=== PATIENT | male | born 1945 | race Caucasian/White ===

== ENCOUNTER 2017-12-20 15:17 | Inpatient (IN) | payer MEDICARE ==
[~2017-12-20] VITALS: Ht 175.3 cm; Wt 60.0 kg
[2017-12-20 15:25] VITALS: O2SAT 74
[2017-12-20] MEDS ORDERED: SODIUM CHLOR 0.9% 1000 ML INJ 1,000 ML IV SCH ×2 (15:42→17:37)
[2017-12-20] MEDS ORDERED: SODIUM CHLORIDE 0.9% FLUSH 10 ML FLUSH IV FLUSH PRN ×2 (15:45→17:45)
[2017-12-20] MEDS ORDERED: NOREPINEPHRINE 4 MG/4 ML AMP ONE (15:48)
[2017-12-20 15:56] VITALS: RESP 16; O2SAT 75
[2017-12-20 16:05] VITALS: BP 101/57; PULSE 96; RESP 16; O2SAT 77
--- NOTE | 2017-12-20 16:06 | PD ---
HPI Chief Complaint: Code Blue Time Seen by Provider: 15:42 Travel History International Travel<30 days: No Contact w/Intl Traveler<30days: No Traveled to known affect area: No History of Present Illness HPI The patient is a 68-year-old male who presents to the emergency department via EMS as a code. The patient arrived as a Jayme Tolbert middle 174, real name is Silverio Marquez with date of 1945. According to the family the patient has a history of atrial fibrillation and severe COPD, he is followed by Dr. Castellanos. The patient had increasing shortness of breath and episodes of atrial fibrillation, which she has had in the past, over the weekend. The then called EMS earlier today. The patient's states that before EMS arrived the patient lost consciousness and had agonal respirations. She estimates a 5-7 minute downtime prior to EMS arrival. When EMS arrived they started doing bag valve ventilations and CPR on the patient, stated he was in pulseless electrical activity. They did provide epinephrine prior to arrival. Upon arrival patient was pulseless, CPR was active. No further information was obtainable from the patient. FOR[facility]LY [facility], [facility] Past Medical History Narrative Medical Myocardial infarction, cardiac ablation, COPD ?: Not Past Surgical History Narrative Surgical Cardiac ablation, appendectomy Social History Tobacco Use: Yes Allergies-Medications (Allergen,Severity, Reaction): Coded Allergies: No Allergy Information Available (Unverified , 12/20/17) Intubated Review of Systems ROS Limitations: Clinical Condition Except as stated in HPI: all other systems reviewed are Neg Physical Exam Narrative GENERAL: Eyes closed, nonverbal, GCS 3. SKIN: Cool to the touch and mottled. HEAD: Atraumatic. Normocephalic. EYES: Pupils equal and round. 4 mm bilateral nonreactive. ENT: No nasal bleeding or discharge. Poor dentition. NECK: Trachea midline. No JVD. CARDIOVASCULAR: No pulse detected. RESPIRATORY: No spontaneous respirations noted. GASTROINTESTINAL: Abdomen soft, slightly distended. MUSCULOSKELETAL: No obvious deformities. No clubbing. No cyanosis. No edema. NEUROLOGICAL: GCS 3. PSYCHIATRIC: Unable to obtain. Data Data Last Documented VS Vital Signs Date Time Temp Pulse Resp B/P (MAP) Pulse Ox O2 Delivery O2 Flow Rate FiO2 12/20/17 16:33 97 18 136/64 (88) 98 Ventilator 100 Orders Orders Electrocardiogram (12/20/17 15:42) Complete Blood Count With Diff (12/20/17 15:42) Comprehensive Metabolic Panel (12/20/17 15:42) Creatine Kinase (Cpk) (12/20/17 15:42) Prothrombin Time / Inr (Pt) (12/20/17 15:42) Act Partial Throm Time (Ptt) (12/20/17 15:42) Troponin I (12/20/17 15:42) Urinalysis - C+S If Indicated (12/20/17 15:42) Lactic Acid Sepsis Protocol (12/20/17 15:42) Blood Culture (12/20/17 15:42) Chest, Single Ap (12/20/17 15:42) Blood Glucose (12/20/17 15:42) Ecg Monitoring (12/20/17 15:42) Iv Access Insert/Monitor (12/20/17 15:42) Oximetry (12/20/17 15:42) Sodium Chloride 0.9% Flush (Ns Flush) (12/20/17 15:45) Sodium Chlor 0.9% 1000 Ml Inj (Ns 1000 M (12/20/17 15:42) Titi-Gastric Tube Insert/Mon (12/20/17 15:42) Urinary Catheter Insert/Apply (12/20/17 15:42) Norepinephrine Inj (Levophed Inj) (12/20/17 15:48) Ct Brain W/O Iv Contrast(Rout) (12/20/17 ) Arterial Blood Gas (Abg) (12/20/17 ) Midazolam Inj (Versed Inj) (12/20/17 16:15) Midazolam Inj (Versed Inj) (12/20/17 16:14) Sodium Bicarbonate 8.4% Inj (Sodium Bica (12/20/17 16:30) ^ Infusion (12/20/17 ) Norepinephrine-Dextrose Drip (Levophed-D (12/20/17 17:00) Terbutaline Inj (Brethine Inj) (12/20/17 16:30) Lactic Acid Sepsis Protocol (12/20/17 16:27) Midazolam Inj (Versed Inj) (12/20/17 17:00) Midazolam 100 Mg/100 Ml Inj (Versed Inj) (12/20/17 17:00) ^ Infusion (12/20/17 16:57) Fentanyl Drip (Fentanyl Drip) (12/20/17 17:00) Elevate Head Of Bed (12/20/17 17:37) Chlorhexidine 0.12% Liq (Peridex 0.12% L (12/20/17 20:00) Oral Hygiene Kit (12/21/17 16:00) Resp Ventilation- Pressure (12/20/17 ) Restraints Non-Violent SILVERIO.Q3H (12/20/17 17:37) Ventilator Weaning Readiness SILVERIO.DAILY@0800 (12/20/17 17:37) Admit To Inpatient (12/20/17 ) Code Status (12/20/17 17:37) Vital Signs (Adult) SILVERIO.Q1H (12/20/17 17:37) Activity Bed Rest (12/20/17 17:37) Elevate Head Of Bed (12/20/17 17:37) Diet Npo (12/20/17 Dinner) Sodium Chlor 0.9% 1000 Ml Inj (Ns 1000 M (12/20/17 17:37) Sodium Chloride 0.9% Flush (Ns Flush) (12/20/17 17:45) Sodium Chloride 0.9% Flush (Ns Flush) (12/20/17 21:00) Pantoprazole Inj (Protonix Inj) (12/21/17 09:00) Artificial Tears Opth Soln (Tears Natura (12/20/17 18:00) Ondansetron Inj (Zofran Inj) (12/20/17 17:45) Albuterol-Ipratropium Neb (Duoneb Neb) (12/20/17 20:00) Albuterol Neb (Albuterol Neb) (12/20/17 17:45) Complete Blood Count With Diff (12/21/17 04:00) Comprehensive Metabolic Panel (12/21/17 04:00) Act Partial Throm Time (Ptt) (12/21/17 04:00) Prothrombin Time / Inr (Pt) (12/21/17 04:00) Magnesium (Mg) (12/21/17 04:00) Phosphorus (Po4) (12/21/17 04:00) Lactic Acid (12/21/17 04:00) Rf Manager / Telemetry SILVERIO.Q8H (12/20/17 17:37) Scd Bilateral/Knee High SILVERIO.BID (12/20/17 17:37) ^ Initiate Protocol (12/20/17 17:37) Instruction (12/20/17 17:37) [facility] [place]12/20/17 17:45) Chlorhexidine 2% Cloth (Chlorhexidine 2% (12/21/17 04:00) Chlorhexidine 2% Cloth (Chlorhexidine 2% (12/20/17 17:45) Mrsa Pcr Surveillance (12/20/17 17:37) Docusate Sodium-Senna (Rae-Colace) (12/20/17 21:00) Magnesium Hydroxide Liq (Milk Of Magnesi (12/20/17 17:45) Sennosides (Senokot) (12/20/17 17:45) Bisacodyl Supp (Dulcolax Supp) (12/20/17 17:45) Lactulose Liq (Lactulose Liq) (12/20/17 17:45) Vital Signs (Adult) SILVERIO.QSHIFT (12/20/17 17:37) ^ Send Patient To (12/20/17 17:37) Discontinue Ng Tube (12/20/17 17:37) ^ Other Nursing Orders (12/20/17 17:37) Hydromorphone Pf Inj (Dilaudid Pf Inj) (12/20/17 17:45) Lorazepam Inj (Ativan Inj) (12/20/17 17:45) Hyoscyamine (Levsin) (12/20/17 17:45) Hydromorphone Pf Inj (Dilaudid Pf Inj) (12/20/17 18:00) Lorazepam Inj (Ativan Inj) (12/20/17 18:00) Hydromorphone Pf Inj (Dilaudid Pf Inj) (12/20/17 20:00) Hydromorphone Pf Inj (Dilaudid Pf Inj) (12/20/17 18:15) Hydromorphone Pf Inj (Dilaudid Pf Inj) (12/20/17 18:15) Lorazepam Inj (Ativan Inj) (12/20/17 20:00) Lorazepam Inj (Ativan Inj) (4/10/18 18:15) Lorazepam Inj (Ativan Inj) (12/20/17 18:15) Lorazepam Inj (Ativan Inj) (12/20/17 18:15) Acetaminophen Supp (Tylenol Supp) (12/20/17 18:15) Furosemide Inj (Lasix Inj) (12/20/17 18:15) Bisacodyl Supp (Dulcolax Supp) (12/20/17 18:15) Resp Extubation (12/20/17 ) Inpatient Certification (12/20/17 ) Phenylephrine Inj (Neosynephrine Inj) (12/20/17 17:45) Terbutaline Inj (Brethine Inj) (12/20/17 17:45) Admit Order (Ed Use Only) (12/20/17 18:12) Labs Laboratory Tests Test 12/20/17 15:41 12/20/17 15:45 12/20/17 15:55 White Blood Count 19.3 TH/MM3 Red Blood Count 5.56 MIL/MM3 Hemoglobin 17.1 GM/DL Hematocrit 55.5 % Mean Corpuscular Volume 99.9 FL Mean Corpuscular Hemoglobin 30.8 PG Mean Corpuscular Hemoglobin Concent 30.8 % Red Cell Distribution Width 17.4 % Platelet Count 189 TH/MM3 Mean Platelet Volume 7.8 FL Neutrophils (%) (Auto) 70.0 % Lymphocytes (%) (Auto) 21.5 % Monocytes (%) (Auto) 7.6 % Eosinophils (%) (Auto) 0.6 % Basophils (%) (Auto) 0.3 % Neutrophils # (Auto) 13.5 TH/MM3 Lymphocytes # (Auto) 4.1 TH/MM3 Monocytes # (Auto) 1.5 TH/MM3 Eosinophils # (Auto) 0.1 TH/MM3 Basophils # (Auto) 0.1 TH/MM3 CBC Comment AUTO DIFF Differential Total Cells Counted 100 Neutrophils % (Manual) 58 % Band Neutrophils % 2 % Lymphocytes % 24 % Monocytes % 11 % Eosinophils % 2 % Neutrophils # (Manual) 12.2 TH/MM3 Metamyelocytes 1 % Myelocytes 2 % Differential Comment FINAL DIFF MANUAL Toxic Granulation 1+ Platelet Estimate NORMAL Platelet Morphology Comment NORMAL Basophilic Stippling FAINT Spherocytes OCC Prothrombin Time 12.7 SEC Prothromb Time International Ratio 1.3 RATIO Activated Partial Thromboplast Time 32.4 SEC Lactic Acid Level 9.7 mmol/L Urine Color YELLOW Urine Turbidity CLEAR Urine pH 5.5 Urine Specific Bradford 1.011 Urine Protein NEG mg/dL Urine Glucose (UA) NEG mg/dL Urine Ketones NEG mg/dL Urine Occult Blood NEG Urine Nitrite NEG Urine Bilirubin NEG Urine Urobilinogen LESS THAN 2.0 MG/DL Urine Leukocyte Esterase SMALL Urine RBC 1 /hpf Urine WBC LESS THAN 1 /hpf Urine Hyaline Casts 3 /lpf Microscopic Urinalysis Comment CATH-CULT NOT IND Blood Gas Puncture Site ART LINE Blood Gas Patient Temperature 98.6 Blood Gas HCO3 18 mmol/L Blood Gas Base Excess -11.1 mmol/L Blood Gas Oxygen Saturation 66 % Arterial Blood pH 7.02 Arterial Blood Partial Pressure CO2 75 mmHg Arterial Blood Partial Pressure O2 56 mmHG Arterial Blood Oxygen Content 15.7 Vol % Arterial Blood Carboxyhemoglobin 0.1 % Arterial Blood Methemoglobin 0.8 % Blood Gas Hemoglobin 16.8 G/DL Oxygen Delivery Device VENTILATOR Blood Gas Ventilator Setting Blood Gas Inspired Oxygen 100 % MDM Medical Decision Making Medical Screen Exam Complete: Yes Emergency Medical Condition: Yes Medical Record Reviewed: Yes Interpretation(s) EKG reveals atrial fibrillation with apparent conduction versus PVCs. Right bundle branch block. Last Impressions Chest X-Ray 12/20/17 1549 Signed Impressions: Service Date/Time: Wednesday, December 20, 2017 16:02 - CONCLUSION: Underinflated examination with elevated right hemidiaphragm and atelectasis versus scar at the right lung base. Otherwise, no definite acute finding is seen. Jayme Mayfield MD Laboratory Tests Test 12/20/17 15:41 12/20/17 15:45 12/20/17 15:55 White Blood Count 19.3 TH/MM3 Red Blood Count 5.56 MIL/MM3 Hemoglobin 17.1 GM/DL Hematocrit 55.5 % Mean Corpuscular Volume 99.9 FL Mean Corpuscular Hemoglobin 30.8 PG Mean Corpuscular Hemoglobin Concent 30.8 % Red Cell Distribution Width 17.4 % Platelet Count 189 TH/MM3 Mean Platelet Volume 7.8 FL Neutrophils (%) (Auto) 70.0 % Lymphocytes (%) (Auto) 21.5 % Monocytes (%) (Auto) 7.6 % Eosinophils (%) (Auto) 0.6 % Basophils (%) (Auto) 0.3 % Neutrophils # (Auto) 13.5 TH/MM3 Lymphocytes # (Auto) 4.1 TH/MM3 Monocytes # (Auto) 1.5 TH/MM3 Eosinophils # (Auto) 0.1 TH/MM3 Basophils # (Auto) 0.1 TH/MM3 CBC Comment AUTO DIFF Differential Total Cells Counted 100 Neutrophils % (Manual) 58 % Band Neutrophils % 2 % Lymphocytes % 24 % Monocytes % 11 % Eosinophils % 2 % Neutrophils # (Manual) 12.2 TH/MM3 Metamyelocytes 1 % Myelocytes 2 % Differential Comment FINAL DIFF MANUAL Toxic Granulation 1+ Platelet Estimate NORMAL Platelet Morphology Comment NORMAL Basophilic Stippling FAINT Spherocytes OCC Prothrombin Time 12.7 SEC Prothromb Time International Ratio 1.3 RATIO Activated Partial Thromboplast Time 32.4 SEC Lactic Acid Level 9.7 mmol/L Urine Color YELLOW Urine Turbidity CLEAR Urine pH 5.5 Urine Specific Bradford 1.011 Urine Protein NEG mg/dL Urine Glucose (UA) NEG mg/dL Urine Ketones NEG mg/dL Urine Occult Blood NEG Urine Nitrite NEG Urine Bilirubin NEG Urine Urobilinogen LESS THAN 2.0 MG/DL Urine Leukocyte Esterase SMALL Urine RBC 1 /hpf Urine WBC LESS THAN 1 /hpf Urine Hyaline Casts 3 /lpf Microscopic Urinalysis Comment CATH-CULT NOT IND Blood Gas Puncture Site ART LINE Blood Gas Patient Temperature 98.6 Blood Gas HCO3 18 mmol/L Blood Gas Base Excess -11.1 mmol/L Blood Gas Oxygen Saturation 66 % Arterial Blood pH 7.02 Arterial Blood Partial Pressure CO2 75 mmHg Arterial Blood Partial Pressure O2 56 mmHG Arterial Blood Oxygen Content 15.7 Vol % Arterial Blood Carboxyhemoglobin 0.1 % Arterial Blood Methemoglobin 0.8 % Blood Gas Hemoglobin 16.8 G/DL Oxygen Delivery Device VENTILATOR Blood Gas Ventilator Setting Blood Gas Inspired Oxygen 100 % Differential Diagnosis Differential diagnosis includes respiratory arrest, cardiac arrest, pulmonary embolism, end-stage COPD, sepsis, pneumonia, cardiac tamponade, pericardial effusion, pleural effusion, electrolyte abnormality. Narrative Course Upon arrival the patient's GCS was 3, no airway was established, the patient was not breathing spontaneously, the patient had no pulse. Therefore, CPR was resumed. The patient was intubated using rapid sequence intubation with etomidate and succinylcholine with an 8-0 endotracheal tube. The patient was administered 2 rounds of epinephrine, there was spontaneous return of circulation with palpable pulse. Arterial line was placed in the left upper extremity. The patient's mean arterial pressure was greater than 65%. The patient was placed on IV fluids, post intubation chest x-ray was obtained. Stat CT the brain was ordered. OG tube was placed. Collins catheter was placed. I spoke with the family in the consultation room, they requested no CPR if the patient loses pulses once again, but states it is acceptable to continue treatment. A call was placed the on-call mercury recoverer to evaluate if the patient is a candidate for code cool. The patient is not a candidate for code cool, the patient's pH was 7.0, therefore, received bicarbonate 1 amp intravenously. The then asked that the patient be withdrawn from care after he was evaluated by the mercury recoverer. Dr. Mathews and myself both agree that the patient does have history of COPD which has progressed to end-stage and is on oxygen 8 L at home. The states the patient does not want to be intubated, she is requesting withdrawal of treatment. Therefore, we did sign paperwork to withdraw treatment and will await for family to arrive prior to withdrawing care. Critical Care Narrative Aggregate critical care time was 50 minutes. Time to perform other separately billable procedures was not included in the critical care time. My time did not include minutes spent treating any other patients simultaneously or on activities that did not directly contribute to the patient's treatment. The services I provided to this patient were to treat and/or prevent clinically significant deterioration that could result in: Anoxia, hypoxia, aspiration, shock, . I provided critical care services requiring my management, as noted below: Chart data review, documentation time, medication orders and management, vital sign assessments/reviewing monitor data, ordering and reviewing lab tests, ordering and interpreting/reviewing x-rays and diagnostic studies, care of the patient and discussion of the patient with the admitting physicians. Procedures Procedure Narrative The patient was put in optimal position for the procedure. Rapid sequence intubation was initiated by me using 20 milligrams of etomidate IV and 100 milligrams of succinylcholine IV. The patient was intubated with a 8-0 cuffed endotracheal tube. Tube placement was confirmed by visualization of the tube and balloon passing through the cords, capnometry and subsequent chest x-ray. Breath sounds were equal and well aerated bilaterally postintubation. No breath sounds over stomach. Patient tolerated procedure well. An arterial line was placed in the left radial artery under ultrasound guidance with a linear probe. The area was draped and prepped in normal sterile fashion , cleaned with ChloraPrep, and using a linear probe, an arterial line was placed in left radial artery Via Seldinger technique. There was good pulsatile blood flow. The patient tolerated the procedure without difficulty. There was a small hematoma at the site of puncture, otherwise no obvious complications. CPR and ACLS protocol was followed for approximately 10 minutes in the emergency department. Physician Communication Physician Communication A call was placed to the on-call mercury recoverer for admission. Diagnosis Primary Impression: Cardiopulmonary arrest with successful resuscitation Admitting Information Admitting Physician Requests: Admit Condition: Critical Josue Woodard MD Dec 20, 2017 16:06
[2017-12-20 16:14] LABS: AUTOMATED NEUTROPHIL # 13.5 TH/MM3 (1.8-7.7); BASOPHIL # 0.1 TH/MM3 (0-0.2); BASOPHIL % 0.3 % (0.0-2.0); EOSINOPHIL # 0.1 TH/MM3 (0-0.4); EOSINOPHIL % 0.6 % (0.0-4.0); HEMATOCRIT 55.5 % (39.0-51.0); HEMOGLOBIN 17.1 GM/DL (13.0-17.0); LYMPH % 21.5 % (9.0-44.0); LYMPHOCYTE # 4.1 TH/MM3 (1.0-4.8); MEAN CELL VOLUME 99.9 FL (80.0-100.0); MEAN CORPUSCULAR HEMOGLOBIN 30.8 PG (27.0-34.0); MEAN CORPUSCULAR HGB CONC 30.8 % (32.0-36.0); MEAN PLATELET VOLUME 7.8 FL (7.0-11.0); MONO % 7.6 % (0.0-8.0); MONOCYTE # 1.5 TH/MM3 (0-0.9); PLATELET COUNT 189 TH/MM3 (150-450); RED BLOOD COUNT 5.56 MIL/MM3 (4.50-5.90); RED CELL DISTRIBUTION WIDTH 17.4 % (11.6-17.2); WHITE BLOOD COUNT 19.3 TH/MM3 (4.0-11.0)
[2017-12-20] MEDS ORDERED: MIDAZOLAM HCL 5 MG/ML VIAL (1 ML) ONE (16:14)
[2017-12-20] MEDS ORDERED: MIDAZOLAM HCL 5 MG/5 ML VIAL IV PUSH ONE (16:15)
[2017-12-20 16:22] VITALS: BP 64/37; PULSE 92; RESP 18; O2SAT 84
[2017-12-20] MEDS ORDERED: SODIUM BICARBONATE 8.4% INJ 50 MEQ/50 ML SYR IV PUSH ONE (16:30)
[2017-12-20] MEDS ORDERED: TERBUTALINE INJ 1 MG/ML AMP SQ PRN ×2 (16:30→17:45)
[2017-12-20 16:33] VITALS: BP 136/64; PULSE 97; RESP 18; O2SAT 98
[2017-12-20 16:34] LABS: INTERNATIONAL NORMALIZED RATIO 1.3 RATIO; PROTHROMBIN TIME - PATIENT 12.7 SEC (9.8-11.6)
[2017-12-20 16:42] LABS: BILIRUBIN, URINE NEG (NEG); BLOOD, URINE NEG (NEG); GLUCOSE,URINE NEG (NEG); HYALINE CAST, URINE 3 /lpf (RARE); KETONE, URINE NEG (NEG); NITRITE,URINE NEG (NEG); PH, URINE 5.5 (5.0-8.5); URINE COLOR YELLOW (YELLW/STRAW); URINE LEUKOCYTE ESTERASE SMALL (NEG)
[2017-12-20 16:42] LABS: LACTIC ACID SEPSIS PROTOCOL 9.7 mmol/L (0.4-2.0)
--- NOTE | 2017-12-20 16:45 | RADRPT ---
EXAM DATE/TIME: 12/20/2017 16:02 [facility] COMPARISON: No previous studies available for comparison. INDICATIONS : Short of breath. MEDICAL HISTORY : None. SURGICAL HISTORY : None. ENCOUNTER: Initial ACUITY: 1 day PAIN SCORE: Non-responsive. LOCATION: Bilateral chest FINDINGS: Portable AP views of the chest demonstrate a normal-sized cardiac silhouette with calcification of th e aorta. Endotracheal tube is present with distal tip measuring 5.2 cm in the joan. NG tube courses beyond the GE junction. Lungs are underinflated. Linear opacity is present at the right lung base. I nterstitial prominence is present bilaterally. No pleural effusion or pneumothorax is identified. The bones and soft tissues demonstrate no acute abnormality. CONCLUSION: Underinflated examination with elevated right hemidiaphragm and atelectasis versus scar at the right lung base. Otherwise, no definite acute finding is seen. Jayme Mayfield MD on December 20, 2017 at 16:41 Board Certified Radiologist. This report was verified electronically.
[2017-12-20 16:46] LABS: BANDS 2 % (0-6); LYMPHOCYTES 24 % (9-44); METAMYELOCYTES 1 % (0-1); MONOCYTES 11 % (0-8); MYELOCYTES 2 % (0-0); NEUTROPHIL # MANUAL DIFF 12.2 TH/MM3 (1.8-7.7); POLYS (SEG NEUTROPHILS) 58 % (16-70)
[2017-12-20 16:47] LABS: SPHEROCYTES OCC (NORMAL)
[2017-12-20 16:48] LABS: TOXIC GRANULATION 1+ (NORMAL)
[2017-12-20] MEDS ORDERED: fentaNYL DRIP 250 ML IV PRN ×3 (17:00→17:45)
[2017-12-20] MEDS ORDERED: MIDAZOLAM 100 MG/100 ML INJ 100 ML IV PRN ×3 (17:00→18:30)
[2017-12-20] MEDS ORDERED: MIDAZOLAM HCL 2 MG/2 ML VIAL IV PUSH ONE (17:00)
[2017-12-20] MEDS ORDERED: NOREPINEPHRINE-DEXTROSE DRIP 250 ML IV PRN (17:00)
--- NOTE | 2017-12-20 17:43 | HHI.HP ---
[facility] Service Critical Care Medicine Primary Care Physician Yevgeniy Damon Admission Diagnosis Out of hospital cardiac arrest likely secondary respiratory failure Diagnosis: (1) Cardiopulmonary arrest with successful resuscitation Diagnosis: Principal (2) Coronary artery disease Diagnosis: Principal (3) Lactic acidosis Diagnosis: Principal (4) Polycythemia Diagnosis: Secondary (5) Leukocytosis Diagnosis: Secondary (6) COPD (chronic obstructive pulmonary disease) Diagnosis: Principal Chief Complaint: Out of hospital cardiac arrest Travel History International Travel<30 Days: No Contact w/Intl Traveler <30 Da: No Traveled to Known Affected Are: No History of Present Illness 68-year-old male. Date of admission 12/20/2017. 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 Castellanos atrial fibrillation status post ablation follows Dr. Warner hypertension and alcohol use he presents today to [facility] emergency department as our hospital cardiac arrest likely secondary to respiratory failure versus tachybradycardia. The patient arrived as a Jayme Tolbert middle 89, real name is Silverio Onofremarnie Marquez with date of 1945. He is 72. The patient had increasing shortness of breath and episodes of atrial fibrillation including tachybradycardia type syndromes, which she has had in the past, over the weekend. The then called EMS earlier today. The patient's states that before EMS arrived the patient lost consciousness and had agonal respirations. She estimates a 5-7 minute downtime prior to EMS arrival. When EMS arrived they started doing bag valve ventilations and CPR on the patient, stated he was in pulseless electrical activity. They did provide epinephrine prior to arrival. Upon arrival patient was pulseless, CPR was active. No further information was obtainable from the patient. Patient was intubated after receiving 20 mg etomidate and 100 mg succinylcholine in the ED. CPR ALS continued for additional 10 minutes for total of 26 minutes. Pupils are approximately 6 mm laterally and fixed. Patient is overbreathing the ventilator. No gag. No cough. Minimal corneal reflex. Does not withdraw to pain. Lactic acid 9.7. White blood cell count 17 ,000. Hemoglobin 17. Remainder laboratories are all pending. EKG revealed a right bundle branch block/atrial fibrillation with ectopy. After long discussion with /healthcare proxy Makenzie Jimmy articles B and C were signed with Dr. Woodard and witnesses and patient will be extubated upon arrival to ICU Review of Systems ROS Limitations: Intubated Past Family Social History Allergies: Coded Allergies: No Allergy Information Available (Unverified , 12/20/17) Intubated Past Medical History End-stage COPD on 8 L liquid oxygen Atrial fibrillation status post ablation Coronary disease status post stents 3 Hypertension Alcohol use Prior tobaccoism Past Surgical History Ablation 2010 Appendectomy Coronary artery stents 3 Reported Medications Fluticasone/Vilanterol 100/25 one puff daily Tiotropium 18 mcg inhalation daily Carvedilol 12.5 mg p.o. twice daily Aspirin 81 mg p.o. daily Active Ordered Medications Reviewed in EMR Family History Mother age 76 failure to thrive. Father at age 80 of organic causes Social History Quit tobacco in 2007. 40 pack years. 6-12 beers weekly. No illicit drug use. Physical Exam Vital Signs Vital Signs Date Time Temp Pulse Resp B/P (MAP) Pulse Ox O2 Delivery O2 Flow Rate FiO2 12/20/17 16:33 97 18 136/64 (88) 98 Ventilator 100 12/20/17 16:22 92 18 64/37 (46) 84 Ventilator 100 12/20/17 16:05 96 16 101/57 (72) 77 Ventilator 100 12/20/17 15:56 16 75 100 12/20/17 15:25 74 100 Physical Exam GENERAL: 72-year-old male currently orotracheally intubated SKIN: Cool and dry. Positive clubbing HEAD: Atraumatic. Normocephalic. EYES: Pupils equal and round about 5 minutes bilaterally and fixed. No scleral icterus. No injection or drainage. ENT: No nasal bleeding or discharge. Mucous membranes pink and moist. NECK: Trachea midline. No JVD. CARDIOVASCULAR: Irregular, IR. S1, S2. No S4. Without murmur RESPIRATORY: Diminished breath sounds throughout. Positive end expiratory wheeze. GASTROINTESTINAL: Abdomen soft, non-tender, nondistended. Hypoactive bowel sounds appreciated MUSCULOSKELETAL: Extremities with clubbing. No edema. No obvious deformities. NEUROLOGICAL: Slight clearing reflex. Pupils as above. No gag. No cough. No withdrawal to pain in all 4 extremities. Laboratory Laboratory Tests Test 12/20/17 15:41 12/20/17 15:45 12/20/17 15:55 White Blood Count 19.3 Red Blood Count 5.56 Hemoglobin 17.1 Hematocrit 55.5 Mean Corpuscular Volume 99.9 Mean Corpuscular Hemoglobin 30.8 Mean Corpuscular Hemoglobin Concent 30.8 Red Cell Distribution Width 17.4 Platelet Count 189 Mean Platelet Volume 7.8 Neutrophils (%) (Auto) 70.0 Lymphocytes (%) (Auto) 21.5 Monocytes (%) (Auto) 7.6 Eosinophils (%) (Auto) 0.6 Basophils (%) (Auto) 0.3 Neutrophils # (Auto) 13.5 Lymphocytes # (Auto) 4.1 Monocytes # (Auto) 1.5 Eosinophils # (Auto) 0.1 Basophils # (Auto) 0.1 CBC Comment AUTO DIFF Differential Total Cells Counted 100 Neutrophils % (Manual) 58 Band Neutrophils % 2 Lymphocytes % 24 Monocytes % 11 Eosinophils % 2 Neutrophils # (Manual) 12.2 Metamyelocytes 1 Myelocytes 2 Differential Comment FINAL DIFF MANUAL Toxic Granulation 1+ Platelet Estimate NORMAL Platelet Morphology Comment NORMAL Basophilic Stippling FAINT Spherocytes OCC Prothrombin Time 12.7 Prothromb Time International Ratio 1.3 Activated Partial Thromboplast Time 32.4 Lactic Acid Level 9.7 Urine Color YELLOW Urine Turbidity CLEAR Urine pH 5.5 Urine Specific [place] 1.011 Urine Protein NEG Urine Glucose (UA) NEG Urine Ketones NEG Urine Occult Blood NEG Urine Nitrite NEG Urine Bilirubin NEG Urine Urobilinogen LESS THAN 2.0 Urine Leukocyte Esterase SMALL Urine RBC 1 Urine WBC LESS THAN 1 Urine Hyaline Casts 3 Microscopic Urinalysis Comment CATH-CULT NOT IND Blood Gas Puncture Site ART LINE Blood Gas Patient Temperature 98.6 Blood Gas HCO3 18 Blood Gas Base Excess -11.1 Blood Gas Oxygen Saturation 66 Arterial Blood pH 7.02 Arterial Blood Partial Pressure CO2 75 Arterial Blood Partial Pressure O2 56 Arterial Blood Oxygen Content 15.7 Arterial Blood Carboxyhemoglobin 0.1 Arterial Blood Methemoglobin 0.8 Blood Gas Hemoglobin 16.8 Oxygen Delivery Device VENTILATOR Blood Gas Ventilator Setting Blood Gas Inspired Oxygen 100 Date/Time Source Procedure Growth Status 12/20/17 15:15 Blood Peripheral Aerobic Blood Culture Pending Received 12/20/17 15:15 Blood Peripheral Anaerobic Blood Culture Pending Received Result Diagram: 12/20/17 1541 Imaging Last Impressions Chest X-Ray 12/20/17 1542 Signed Impressions: Service Date/Time: Wednesday, December 20, 2017 16:02 - CONCLUSION: Underinflated examination with elevated right hemidiaphragm and atelectasis versus scar at the right lung base. Otherwise, no definite acute finding is seen. Jayme Mayfield MD Septic Shock Reassessment Septic shock perfusion: reassessment completed Caprini VTE Risk Assessment Caprini VTE Risk Assessment: Mod/High Risk (score >= 2) VTE Pharm Contraindication: Documented Caprini Risk Assessment Model Point Value = 1 Point Value = 2 Point Value = 3 Point Value = 5 Age 41-60 Minor surgery BMI > 25 kg/m2 Swollen legs Varicose veins or History of unexplained or recurrent spontaneous Oral contraceptives or hormone replacement Sepsis (< 1 month) Serious lung disease, including pneumonia (< 1 month) Abnormal pulmonary function Acute myocardial infarction Congestive heart failure (< 1 month) History of inflammatory bowel disease Medical patient at bed rest Age 61-74 Arthroscopic surgery Major open surgery (> 45 min) Laparoscopic surgery (> 45 min) Malignancy Confined to bed (> 72 hours) Immobilizing plaster cast Central venous access Age >= 75 History of VTE Family history of VTE Factor V Leiden Prothrombin [id number] Lupus anticoagulant Anticardiolipin antibodies Elevated serum homocysteine Heparin-induced thrombocytopenia Other congenital or acquired thrombophilia Stroke (< 1 month) Elective arthroplasty Hip, pelvis, or leg fracture Acute spinal cord injury (< 1 month) Prophylaxis Regimen Total Risk Factor Score Risk Level Prophylaxis Regimen 0-1 Low Early ambulation 2 Moderate Order ONE of the following: *Sequential Compression Device (SCD) *Heparin 5000 units SQ BID 3-4 Higher Order ONE of the following medications: *Heparin 5000 units SQ TID *Enoxaparin/Lovenox 40 mg SQ daily (WT < 150 kg, CrCl > 30 mL/min) *Enoxaparin/Lovenox 30 mg SQ daily (WT < 150 kg, CrCl > 10-29 mL/min) *Enoxaparin/Lovenox 30 mg SQ BID (WT < 150 kg, CrCl > 30 mL/min) AND/OR *Sequential Compression Device (SCD) 5 or more Highest Order ONE of the following medications: *Heparin 5000 units SQ TID (Preferred with Epidurals) *Enoxaparin/Lovenox 40 mg SQ daily (WT < 150 kg, CrCl > 30 mL/min) *Enoxaparin/Lovenox 30 mg SQ daily (WT < 150 kg, CrCl > 10-29 mL/min) *Enoxaparin/Lovenox 30 mg SQ BID (WT < 150 kg, CrCl > 30 mL/min) AND *Sequential Compression Device (SCD) Assessment and Plan Assessment and Plan Neuro/Psych: 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 Castellanos is his cert occupational therapy asst GI: NG tube to low intermittent wall suction Pantoprazole for GI prophylaxis Docusate sodium/senna 1 tablet for bowel regimen : Collins catheter for accurate I's and O's in a critically ill patient Endo: Sliding scale insulin if indicated Renal: Creatinine currently pending Monitor urine output Accurate I's and O's Heme: Leukocytosis Polycythemia Monitor CBC daily. Follow trends ID: Monitor for infection. Due to withdrawal of care will not initiate antibiotics Blood cultures 2 12/20 pending FEN: Replace electrolytes as clinically indicated MSK: BMI of 19 Access -Utilize peripheral IV. -Left radial art line day 1 placed in ED Prophylaxis -GI -pantoprazole -DVT -SCD/holding pharmacological prophylaxis with withdrawal of care Critical Care: The total critical care time was 35 minutes. Time to perform other separately billable procedures was not included in the critical care time. Code Status DNR/DNI Discussed Condition With Dr. Woodard/emergency physician. Makenzie Marquez/patient's . Patient's wishes were for no intubation/aggressive measures. With prolonged CPR and current physical examination agreed with signing articles C. Plan for withdrawal of care. Articles B and C are signed. Problem Qualifiers (1) Coronary artery disease: Qualified Codes: I25.10 - Atherosclerotic heart disease of [place]' coronary artery without angina pectoris (2) Leukocytosis: Qualified Codes: D72.829 - Elevated white blood cell count, unspecified (3) COPD (chronic obstructive pulmonary disease): Qualified Codes: J44.9 - Chronic obstructive pulmonary disease, unspecified Javad Mathews MD Dec 20, 2017 17:43
[2017-12-20] MEDS ORDERED: LORazepam 2 MG/ML VIAL IV PUSH ONE ×2 (17:45→18:00)
[2017-12-20] MEDS ORDERED: BISACODYL 10 MG SUPP RECTAL PRN ×2 (17:45→18:15)
[2017-12-20] MEDS ORDERED: HYDROmorphone HCL PF 2 MG/ML VIAL IV PUSH ONE ×2 (17:45→18:00)
[2017-12-20] MEDS ORDERED: MISCELLANEOUS NURSING INFORMATION XX SCH (17:45)
[2017-12-20] MEDS ORDERED: PHENYLEPHRINE INJ 160 MG in DEXTROSE 5% IN WATE 500 ML INJ 484 ML IV PRN ×2 (17:45)
[2017-12-20] MEDS ORDERED: ONDANSETRON HCL 4 MG/2 ML VIAL IV PUSH PRN (17:45)
[2017-12-20] MEDS ORDERED: MAGNESIUM HYDROXIDE SUSP 30 ML CUP PO PRN (17:45)
[2017-12-20] MEDS ORDERED: SENNOSIDES 8.6 MG TAB PO PRN (17:45)
[2017-12-20] MEDS ORDERED: RESP: ALBUTEROL 2.5 MG/3 ML NEB (PRN) INH (17:45)
[2017-12-20] MEDS ORDERED: CHLORHEXIDINE GLUCONATE 2 % 1 PACK (2 CLOTHS) TOP PRN (17:45)
[2017-12-20] MEDS ORDERED: LACTULOSE SYRUP 20 GM/30 ML CUP PO PRN (17:45)
[2017-12-20] MEDS ORDERED: HYOSCYAMINE 0.125 MG TAB PO/SL ONE (17:45)
[2017-12-20] MEDS ORDERED: ARTIFICIAL TEARS OPTH SOLN 15 ML BTL EACH EYE SCH (18:00)
[2017-12-20] MEDS ORDERED: HYDROmorphone HCL PF 2 MG/ML VIAL IV PUSH PRN ×2 (18:15)
[2017-12-20] MEDS ORDERED: ACETAMINOPHEN 650 MG SUPP RECTAL PRN (18:15)
[2017-12-20] MEDS ORDERED: FUROSEMIDE 20 MG/2 ML VIAL IV PUSH PRN (18:15)
[2017-12-20] MEDS ORDERED: LORazepam 2 MG/ML VIAL IV PUSH PRN ×3 (18:15)
[2017-12-20 19:02] LABS: ALT (GPT) 100 U/L (12-78)
[2017-12-20 19:08] LABS: ALBUMIN 3.1 GM/DL (3.4-5.0); AST (GOT) 169 U/L (15-37); BICARBONATE 25.8 MEQ/L (21.0-32.0); BLOOD UREA NITROGEN 37 MG/DL (7-18); CALCIUM 7.6 MG/DL (8.5-10.1); CREATININE 1.92 MG/DL (0.60-1.30); GLOMERULAR FILTRATION RATE 30 ML/MIN (>89); GLUCOSE,RANDOM 166 MG/DL (74-106)
[2017-12-20] MEDS ORDERED: EPINEPHrine HCL (1:10,000) 1 MG/10 ML SYRINGE IV ONE (19:24)
--- NOTE | 2017-12-20 19:30 | PD ---
Physical Exam Date Seen by Provider: Dec 20, 2017 Time Seen by Provider: 19:29 Narrative asked to pronounce patient GENERAL: Well-developed well-nourished male unresponsive. gcs 3. SKIN: Warm and dry. No response to painful stimuli. HEAD: Normocephalic. EYES: Bilateral pupils round and nonreactive to light NECK: Trachea midline. No carotid pulses to palpation. CARDIOVASCULAR: No heart sounds to auscultation; bedside ultrasound with curvilinear probe in the subxiphoid location reveals no cardiac activity. No radial or dorsalis pedis pulses to palpation. RESPIRATORY: No chest rise and no breath sounds to auscultation. Data Data Last Documented VS Vital Signs Date Time Temp Pulse Resp B/P (MAP) Pulse Ox O2 Delivery O2 Flow Rate FiO2 12/20/17 16:33 97 18 136/64 (88) 98 Ventilator 100 Orders Orders Electrocardiogram (12/20/17 15:42) Complete Blood Count With Diff (12/20/17 15:42) Comprehensive Metabolic Panel (12/20/17 15:42) Creatine Kinase (Cpk) (12/20/17 15:42) Prothrombin Time / Inr (Pt) (12/20/17 15:42) Act Partial Throm Time (Ptt) (12/20/17 15:42) Troponin I (12/20/17 15:42) Urinalysis - C+S If Indicated (12/20/17 15:42) Lactic Acid Sepsis Protocol (12/20/17 15:42) Blood Culture (12/20/17 15:42) Chest, Single Ap (12/20/17 15:42) Blood Glucose (12/20/17 15:42) Ecg Monitoring (12/20/17 15:42) Iv Access Insert/Monitor (12/20/17 15:42) Oximetry (12/20/17 15:42) Sodium Chloride 0.9% Flush (Ns Flush) (12/20/17 15:45) Sodium Chlor 0.9% 1000 Ml Inj (Ns 1000 M (12/20/17 15:42) Titi-Gastric Tube Insert/Mon (12/20/17 15:42) Urinary Catheter Insert/Apply (12/20/17 15:42) Norepinephrine Inj (Levophed Inj) (12/20/17 15:48) Ct Brain W/O Iv Contrast(Rout) (12/20/17 ) Arterial Blood Gas (Abg) (12/20/17 ) Midazolam Inj (Versed Inj) (12/20/17 16:15) Midazolam Inj (Versed Inj) (12/20/17 16:14) Sodium Bicarbonate 8.4% Inj (Sodium Bica (12/20/17 16:30) ^ Infusion (12/20/17 ) Norepinephrine-Dextrose Drip (Levophed-D (12/20/17 17:00) Terbutaline Inj (Brethine Inj) (12/20/17 16:30) Midazolam Inj (Versed Inj) (12/20/17 17:00) Midazolam 100 Mg/100 Ml Inj (Versed Inj) (12/20/17 17:00) ^ Infusion (12/20/17 16:57) Fentanyl Drip (Fentanyl Drip) (12/20/17 17:00) Elevate Head Of Bed (12/20/17 17:37) Chlorhexidine 0.12% Liq (Peridex 0.12% L (12/20/17 20:00) Oral Hygiene Kit (12/21/17 16:00) Resp Ventilation- Pressure (12/20/17 ) Restraints Non-Violent SILVERIO.Q3H (12/20/17 17:37) Ventilator Weaning Readiness SILVERIO.DAILY@0800 (12/20/17 17:37) Admit To Inpatient (12/20/17 ) Code Status (12/20/17 17:37) Vital Signs (Adult) SILVERIO.Q1H (12/20/17 17:37) Activity Bed Rest (12/20/17 17:37) Elevate Head Of Bed (12/20/17 17:37) Diet Npo (12/20/17 Dinner) Sodium Chlor 0.9% 1000 Ml Inj (Ns 1000 M (12/20/17 17:37) Sodium Chloride 0.9% Flush (Ns Flush) (12/20/17 17:45) Sodium Chloride 0.9% Flush (Ns Flush) (12/20/17 21:00) Pantoprazole Inj (Protonix Inj) (12/21/17 09:00) Artificial Tears Opth Soln (Tears Natura (12/20/17 18:00) Ondansetron Inj (Zofran Inj) (12/20/17 17:45) Albuterol-Ipratropium Neb (Duoneb Neb) (12/20/17 20:00) Albuterol Neb (Albuterol Neb) (12/20/17 17:45) Complete Blood Count With Diff (12/21/17 04:00) Comprehensive Metabolic Panel (12/21/17 04:00) Act Partial Throm Time (Ptt) (12/21/17 04:00) Prothrombin Time / Inr (Pt) (12/21/17 04:00) Magnesium (Mg) (12/21/17 04:00) Phosphorus (Po4) (12/21/17 04:00) Lactic Acid (12/21/17 04:00) Personnel Records Clerk / Telemetry SILVERIO.Q8H (12/20/17 17:37) Scd Bilateral/Knee High SILVERIO.BID (12/20/17 17:37) ^ Initiate Protocol (12/20/17 17:37) Instruction (12/20/17 17:37) [facility] (12/20/17 17:45) Chlorhexidine 2% Cloth (Chlorhexidine 2% (12/21/17 04:00) Chlorhexidine 2% Cloth (Chlorhexidine 2% (12/20/17 17:45) Mrsa Pcr Surveillance (12/20/17 17:37) Docusate Sodium-Senna (Rae-Colace) (12/20/17 21:00) Magnesium Hydroxide Liq (Milk Of Magnesi (12/20/17 17:45) Sennosides (Senokot) (12/20/17 17:45) Bisacodyl Supp (Dulcolax Supp) (12/20/17 17:45) Lactulose Liq (Lactulose Liq) (12/20/17 17:45) Vital Signs (Adult) SILVERIO.QSHIFT (12/20/17 17:37) ^ Send Patient To (12/20/17 17:37) Discontinue Ng Tube (12/20/17:37) ^ Other Nursing Orders (12/20/17 17:37) Hydromorphone Pf Inj (Dilaudid Pf Inj) (12/20/17 17:45) Lorazepam Inj (Ativan Inj) (12/20/17 17:45) Hyoscyamine (Levsin) (12/20/17 17:45) Hydromorphone Pf Inj (Dilaudid Pf Inj) (12/20/17 18:00) Lorazepam Inj (Ativan Inj) (12/20/17 18:00) Hydromorphone Pf Inj (Dilaudid Pf Inj) (12/20/17 20:00) Hydromorphone Pf Inj (Dilaudid Pf Inj) (12/20/17 18:15) Hydromorphone Pf Inj (Dilaudid Pf Inj) (12/20/17 18:15) Lorazepam Inj (Ativan Inj) (12/20/17 20:00) Lorazepam Inj (Ativan Inj) (12/20/17 18:15) Lorazepam Inj (Ativan Inj) (12/20/17 18:15) Lorazepam Inj (Ativan Inj) (12/20/17 18:15) Acetaminophen Supp (Tylenol Supp) (12/20/17 18:15) Furosemide Inj (Lasix Inj) (12/20/17 18:15) Bisacodyl Supp (Dulcolax Supp) (12/20/17 18:15) Resp Extubation (12/20/17 ) Inpatient Certification (12/20/17 ) Phenylephrine Inj (Neosynephrine Inj) (12/20/17 17:45) Terbutaline Inj (Brethine Inj) (12/20/17 17:45) Admit Order (Ed Use Only) (12/20/17 18:12) Labs Laboratory Tests Test 12/20/17 15:41 12/20/17 15:45 12/20/17 15:55 12/20/17 17:45 White Blood Count 19.3 TH/MM3 Red Blood Count 5.56 MIL/MM3 Hemoglobin 17.1 GM/DL Hematocrit 55.5 % Mean Corpuscular Volume 99.9 FL Mean Corpuscular Hemoglobin 30.8 PG Mean Corpuscular Hemoglobin Concent 30.8 % Red Cell Distribution Width 17.4 % Platelet Count 189 TH/MM3 Mean Platelet Volume 7.8 FL Neutrophils (%) (Auto) 70.0 % Lymphocytes (%) (Auto) 21.5 % Monocytes (%) (Auto) 7.6 % Eosinophils (%) (Auto) 0.6 % Basophils (%) (Auto) 0.3 % Neutrophils # (Auto) 13.5 TH/MM3 Lymphocytes # (Auto) 4.1 TH/MM3 Monocytes # (Auto) 1.5 TH/MM3 Eosinophils # (Auto) 0.1 TH/MM3 Basophils # (Auto) 0.1 TH/MM3 CBC Comment AUTO DIFF Differential Total Cells Counted 100 Neutrophils % (Manual) 58 % Band Neutrophils % 2 % Lymphocytes % 24 % Monocytes % 11 % Eosinophils % 2 % Neutrophils # (Manual) 12.2 TH/MM3 Metamyelocytes 1 % Myelocytes 2 % Differential Comment FINAL DIFF MANUAL Toxic Granulation 1+ Platelet Estimate NORMAL Platelet Morphology Comment NORMAL Basophilic Stippling FAINT Spherocytes OCC Prothrombin Time 12.7 SEC Prothromb Time International Ratio 1.3 RATIO Activated Partial Thromboplast Time 32.4 SEC Lactic Acid Level 9.7 mmol/L Urine Color YELLOW Urine Turbidity CLEAR Urine pH 5.5 Urine Specific [place] 1.011 Urine Protein NEG mg/dL Urine Glucose (UA) NEG mg/dL Urine Ketones NEG mg/dL Urine Occult Blood NEG Urine Nitrite NEG Urine Bilirubin NEG Urine Urobilinogen LESS THAN 2.0 MG/DL Urine Leukocyte Esterase SMALL Urine RBC 1 /hpf Urine WBC LESS THAN 1 /hpf Urine Hyaline Casts 3 /lpf Microscopic Urinalysis Comment CATH-CULT NOT IND Blood Gas Puncture Site ART LINE Blood Gas Patient Temperature 98.6 Blood Gas HCO3 18 mmol/L Blood Gas Base Excess -11.1 mmol/L Blood Gas Oxygen Saturation 66 % Arterial Blood pH 7.02 Arterial Blood Partial Pressure CO2 75 mmHg Arterial Blood Partial Pressure O2 56 mmHG Arterial Blood Oxygen Content 15.7 Vol % Arterial Blood Carboxyhemoglobin 0.1 % Arterial Blood Methemoglobin 0.8 % Blood Gas Hemoglobin 16.8 G/DL Oxygen Delivery Device VENTILATOR Blood Gas Ventilator Setting Blood Gas Inspired Oxygen 100 % Blood Urea Nitrogen 37 MG/DL Creatinine 1.92 MG/DL Random Glucose 166 MG/DL Total Protein 6.6 GM/DL Albumin 3.1 GM/DL Calcium Level 7.6 MG/DL Alkaline Phosphatase 82 U/L Aspartate Amino Transf (AST/SGOT) 169 U/L Alanine Aminotransferase (ALT/SGPT) 100 U/L Total Bilirubin 0.9 MG/DL Sodium Level 137 MEQ/L Potassium Level 5.0 MEQ/L Chloride Level 100 MEQ/L Carbon Dioxide Level 25.8 MEQ/L Anion Gap 11 MEQ/L Estimat Glomerular Filtration Rate 30 ML/MIN Total Creatine Kinase 203 U/L Troponin I 0.11 NG/ML [facility] Medical Record Reviewed: Yes Supervised Visit with ELIZABETH: No Differential Diagnosis end stage COPD s/p cardiopulmonary arrest w/ supportive measures discontinued. Narrative Course Asked to pronounce patient by his nurse. End stage COPD s/p cardiopulmonary arrest w/ supportive measures discontinued; asked to pronounce patient, family at the bedside. Patient pronounced at 7:25 PM by me. Diagnosis Primary Impression: Cardiopulmonary arrest with successful resuscitation Disposition: 20 Condition: Gabriela Aceves MD Dec 20, 2017 19:30
[2017-12-20 19:40] LABS: ALKALINE PHOSPHATASE 82 U/L (45-117); CHLORIDE 100 MEQ/L (98-107); SODIUM (NA) 137 MEQ/L (136-145); TOTAL BILIRUBIN ADULT 0.9 MG/DL (0.2-1.0); TOTAL PROTEIN 6.6 GM/DL (6.4-8.2); TROPONIN I 0.11 NG/ML (0.02-0.05)
[2017-12-20] MEDS ORDERED: HYDROmorphone HCL PF 2 MG/ML VIAL IV PUSH SCH (20:00)
[2017-12-20] MEDS ORDERED: RESP: ALBUTEROL 2.5 MG/IPRATROPIUM 0.5 MG NEB (SCH) INH (20:00)
[2017-12-20] MEDS ORDERED: LORazepam 2 MG/ML VIAL IV PUSH SCH (20:00)
[2017-12-20] MEDS ORDERED: CHLORHEXIDINE 0.12% (ORAL KIT) 15 ML CUP MT SCH (20:00)
[2017-12-20] MEDS ORDERED: DOCUSATE SODIUM 50 MG/SENNA 8.6 MG TAB PO SCH (21:00)
[2017-12-20] MEDS ORDERED: SODIUM CHLORIDE 0.9% FLUSH 10 ML FLUSH IV FLUSH SCH (21:00)
[2017-12-21] MEDS ORDERED: CHLORHEXIDINE GLUCONATE 2 % 1 PACK (2 CLOTHS) TOP SCH (04:00)
[2017-12-21] MEDS ORDERED: PANTOPRAZOLE SODIUM 40 MG VIAL IV PUSH SCH (09:00)
--- NOTE | 2017-12-21 21:35 | EKG ---
Date Performed: 12/20/2017 Time Performed: 15:36:50 PTAGE: 89 years EKG: ATRIAL FIBRILLATION WITH ABERRANT CONDUCTION OR VENTRICULAR PREMATURE COMPLEXES RIGHT BUNDL E BRANCH BLOCK LATERAL MYOCARDIAL INFARCTION ABNORMAL ECG INTERPRETATION BASED ON A DEFAULT AGE OF 41 YEARS NO PREVIOUS TRACING DOCTOR: Troy Lim Interpretating Date/Time 12/21/2017 21:33:39
== END 2017-12-20 19:25 | disposition expired | DRG 296 ==
LOC: NEPC 15:17 → NEDA 18:14 → EDBD 18:14
PROVIDERS: ADMIT Internal Medicine Critical Care Medicine; ATTEND Internal Medicine Critical Care Medicine
PROC: 5A1935Z Respiratory Ventilation, Less than 24 Consecutive Hours (ICD-10-PCS; principal; 2017-12-20)
PROC: 03HY32Z Insertion of Monitoring Device into Upper Artery, Percutaneous Approach (ICD-10-PCS; 2017-12-20)
PROC: 0BH17EZ Insertion of Endotracheal Airway into Trachea, Via Natural or Artificial Opening (ICD-10-PCS; 2017-12-20)
PROC: 5A12012 Performance of Cardiac Output, Single, Manual (ICD-10-PCS; 2017-12-20)
DX: I46.9 Cardiac arrest, cause unspecified (principal); J96.21 Acute and chronic respiratory failure with hypoxia; G93.1 Anoxic brain damage, not elsewhere classified; E87.2 Acidosis; D75.1 Secondary polycythemia; Z99.81 Dependence on supplemental oxygen; Z66 Do not resuscitate; J44.9 Chronic obstructive pulmonary disease, unspecified; I25.10 Atherosclerotic heart disease of native coronary artery without angina pectoris; I48.91 Unspecified atrial fibrillation; D72.829 Elevated white blood cell count, unspecified; I10 Essential (primary) hypertension; Z72.0 Tobacco use; Z95.5 Presence of coronary angioplasty implant and graft; R40.2430 Glasgow coma scale score 3-8, unspecified time; I25.2 Old myocardial infarction; I45.10 Unspecified right bundle-branch block
CPT/HCPCS: 31500; 43752; 51702; 71045; 80053; 81001; 82550; 82805; 83605; 84484; 85007; 85027; 85610; 85730; 87040; 87205; 92950; 93005; 96374; J0171; J1170; J2060; J2250